=== PATIENT | male | born 1960 | race American Indian/Alaskan Native ===

== ENCOUNTER 2017-11-08 16:53 | Emergency (ER) | payer OTHER ==
[2017-11-08 17:46] VITALS: BP 115/67; PULSE 59; RESP 18; TEMP 98.5; O2SAT 98
== END 2017-11-08 18:39 | disposition left against medical advice (07) ==
LOC: C.ER 16:53
DX: Z02.89 Encounter for other administrative examinations (principal); F10.10 Alcohol abuse, uncomplicated